=== PATIENT | female | born 2000 | race Caucasian/White ===

== ENCOUNTER 2021-12-08 22:39 | Emergency (ER) | payer OTHER | END 2021-12-08 22:57 | disposition left against medical advice (07) | LOC: FER 22:39 | DX: T40.2X1A Poisoning by other opioids, accidental (unintentional), initial encounter (principal) | CPT/HCPCS: 99283; J7030 ==

== ENCOUNTER 2022-01-27 13:14 | Emergency (ER) | payer OTHER ==
[2022-01-27 14:16] LABS: BASOPHIL 0.3 % (0-2); EOSINOPHIL 0.3 % (0-5); HCT 39.9 % (37.0-47.0); LYMPHOCYTE 21.1 % (15-48); MCH 29.5 pg (25.0-31.0); MCHC 32.6 g/dL (32.0-36.0); MCV 90.5 fL (78.0-100.0); NRBC 0; PLT 289 K/uL (150-400); RBC 4.41 M/uL (4.20-5.40); RDW 12.1 % (11.5-14.0); WBC 5.9 K/uL (4.0-10.5)
[2022-01-27 14:33] LABS: ALBUMIN 4.1 g/dL (3.4-5.0); BILIRUBIN - TOTAL 0.4 mg/dL (0.2-1.0); BUN/CREAT RATIO (CALC) 19.4 RATIO; CREATININE 0.62 mg/dL (0.51-0.95); POTASSIUM 3.6 mmol/L (3.5-5.1); TOTAL PROTEIN 7.1 g/dL (6.4-8.2)
[2022-01-27 14:38] LABS: LACTIC ACID 1.9 mmol/L (0.4-1.9)
[2022-01-27 16:01] LABS: BILIRUBIN NEGATIVE (NEGATIVE); BLOOD NEGATIVE Ery/uL (NEGATIVE); CLARITY CLEAR (CLEAR); COLOR YELLOW (YELLOW); GLUCOSE (U) NORMAL (NORMAL); LEUKOCYTES NEGATIVE Leu/uL (NEGATIVE); NITRITE NEGATIVE (NEGATIVE); PROTEIN NEGATIVE (NEGATIVE); SPECIFIC GRAVITY 1.015 (1.001-1.030); pH 8.5 (5.0-9.0)
== END 2022-01-27 18:10 | disposition home or self-care (01) ==
LOC: FER 13:14
PROVIDERS: Nurse Practitioner Family
DX: S46.912A Strain of unspecified muscle, fascia and tendon at shoulder and upper arm level, left arm, initial encounter (principal)
CPT/HCPCS: 36415; 72125; 80053; 81003; 83605; 85025; J2405; J7030